=== PATIENT | female | born 1985 | race Caucasian/White ===

== ENCOUNTER 2019-12-25 03:21 | Emergency (ER) | payer SELFPAY ==
[~2019-12-25] VITALS: Ht 175.3 cm; Wt 72.7 kg
[2019-12-25 03:26] VITALS: BP 130/90; Ht 175.3 cm; Wt 72.7 kg
[2019-12-25] MEDS ORDERED: PROTONIX40 MG PO (03:29)
[2019-12-25] MEDS ORDERED: XANAX1 MG PO (03:29)
[2019-12-25] MEDS ORDERED: LINZESS290 MCG PO (03:29)
[2019-12-25] MEDS ORDERED: PHENERGAN25 M1 PO (03:30)
[2019-12-25] MEDS ORDERED: ADIPEX-P37.5 MG PO (03:30)
[2019-12-25] MEDS ORDERED: VALTREX500 MG PO (03:31)
[2019-12-25] MEDS ORDERED: CARAFATE1 G PO (03:31)
[2019-12-25] MEDS ORDERED: DILAUDID4 MG PO (04:21)
[2019-12-25] MEDS ORDERED: CLEOCIN HCL300 MG PO (04:21)
== END 2019-12-25 05:12 | disposition home or self-care (01) ==
LOC: D.ER 03:21
DX: N76.4 Abscess of vulva (principal); K21.9 Gastro-esophageal reflux disease without esophagitis